=== PATIENT | male | born 1990 | race Caucasian/White ===

== ENCOUNTER 2019-02-24 16:46 | Emergency (ER) | payer OTHER ==
[2019-02-24 16:52] VITALS: BP 124/73; PULSE 75; RESP 18; TEMP 98.2
[2019-02-24] MEDS ORDERED: KETOROLAC 60 MG/2 ML VIAL IM STA (17:29)
--- NOTE | 2019-02-24 17:46 | ED ---
General Adult HPI - General Chief complaint: Extremity Injury, Lower Stated complaint: Knee Pain Time Seen by Provider: 02/24/19 16:54 Source: patient, RN notes reviewed, old records reviewed Mode of arrival: ambulatory Limitations: no limitations - History of Present Illness Initial comments: 28-year-old male patient with no pertinent past medical history presents to ED with approximately 2 months waxing and waning swelling in his right anterior knee. Patient reports that he is often his knees for work, states he does not otherwise were kneepads. Patient works at the swelling has gotten worse in the last week. Patient denies any other complaints. Patient denies any trauma or injury. Patient ambulatory without difficulty. Patient denies any fevers or chills, nausea vomiting diarrhea. Systemic: Pt denies fatigue, myalgia, fever/chills, rash. Pt denies weakness, night sweats, weight loss. Neuro: Pt denies headache, visual disturbances, syncope or pre-syncope. HEENT: Pt denies ocular discharge or irritation, otalgia, rhinorrhea, pharyngitis or notable lymphadenopathy. Cardiopulmonary: Pt denies chest pain, SOB, heart palpitations, dyspnea on exertion. Abdominal/GI: Pt denies abdominal pain, n/v/d. : Pt denies dysuria, burning w/ urination, frequency/urgency. Denies new onset urinary or bowel incontinence. MSK: Pt denies myalgia, loss of strength or function in extremities. Neuro: Pt denies new onset weakness, paresthesias. - Related Data Allergies Allergy/AdvReac Type Severity Reaction Status Date / Time No Known Allergies Allergy Verified 02/24/19 16:52 Review of Systems ROS Statement: Those systems with pertinent positive or pertinent negative responses have been documented in the HPI. ROS Other: All systems not noted in ROS Statement are negative. Past Medical History Past Medical History: No Reported History History of Any Multi-Drug Resistant Organisms: None Reported Past Surgical History: Hernia Repair Past Psychological History: No Psychological Hx Reported Smoking Status: Never smoker Past Alcohol Use History: Occasional Past Drug Use History: None Reported General Exam - General Exam Comments Initial Comments: Constitutional: NAD, AOX3, Pt has pleasant affect. HEENT: NC/AT, trachea midline, neck supple, no lymphadenopathy. Posterior pharynx non erythematous, without exudates. External ears appear normal, without discharge. Mucous membranes moist. Eyes PERRLA, EOM intact. There is no scleral icterus. No pallor noted. Cardiopulmonary: RRR, no murmurs, rubs or gallops, no JVD noted. Lungs CTAB in anterior and posterior griffith. No peripheral edema. Abdominal exam: Abdomen soft and non-distended. Abdomen non-tender to palpation in all 4 quadrants. Bowel sounds active in LLQ. No hepatosplenomegaly. No ecchymosis Neuro: CN II-XII grossly intact. No nuchal rigidity. MSK: Mild effusion noted at right anterior tibial tuberosity region. No erythema.No tenderness to palpation. Full range of motion of knee. No posterior calf tenderness bilaterally, homans sign negative bilaterally. Posterior tibialis and radial pulse +2 bilaterally. Sensation intact in upper and lower extremities. Full active ROM in upper and lower extremities, 5/5 stregnth. Limitations: no limitations Course Vital Signs 02/24/19 16:50 Temperature 98.2 F Pulse Rate 75 Respiratory 18 Rate Blood Pressure 124/73 O2 Sat by Pulse 97 Oximetry Medical Decision Making - Medical Decision Making 28-year-old male patient with no pertinent past medical history presents to ED with approximately 2 months waxing and waning swelling in his right anterior kn ee. Patient reports that he is often his knees for work, states he does not otherwise were kneepads. Patient works at the swelling has gotten worse in the last week. Patient denies any other complaints. Patient denies any trauma or injury. Patient ambulatory without difficulty. Patient denies any fevers or chills, nausea vomiting diarrhea. Patient vital signs stable, afebrile. Physical exam displayed: Mild effusion noted at right anterior tibial tuberosity region. No erythema.No tenderness to palpation. Full range of motion of knee. Explained to patient that he has bursitis. Patient administered anti- inflammatory and ED. Patient will be discharged with anti-inflammatories. Patient will follow up with primary care provider 1-2 days. Return precautions discussed, patient was understanding. Patient return to ER if condition worsens. Case discussed with Dr. Espinoza. Disposition Clinical Impression: Bursitis Disposition: HOME SELF-CARE Condition: Stable Instructions (If sedation given, give patient instructions): Knee Bursitis (ED) Additional Instructions: Patient to adhere to previously discussed treatment plan and will take medication(s) as directed. Patient to follow up with PCP in 1-2 days. Patient to return to ED if symptoms do not improve. Take anti-inflammatories as needed for pain and inflammation. Follow up with orthopedic consult 1-2 days. Return to ER if condition worsens. Return immedia tely to ER if knee becomes red, warm, and inflamed. Is patient prescribed a controlled substance at d/c from ED?: No Referrals: None,Stated [Primary Care Provider] - 1-2 days Arnel Hartman DO [Doctor of Osteopathic Medicine] - 1-2 days
--- NOTE | 2019-02-24 17:47 | ED ---
Disposition Clinical Impression: Bursitis Disposition: HOME SELF-CARE Condition: Stable Instructions (If sedation given, give patient instructions): Knee Bursitis (ED) Additional Instructions: Patient to adhere to previously discussed treatment plan and will take medication(s) as directed. Patient to follow up with PCP in 1-2 days. Patient to return to ED if symptoms do not improve. Take anti-inflammatories as needed for pain and inflammation. Follow up with orthopedic consult 1-2 days. Return to ER if condition worsens. Return immediately to ER if knee becomes red, warm, and inflamed. Prescriptions: Ibuprofen [Motrin] 600 mg PO Q6HR PRN #40 day PRN Reason: Pain Is patient prescribed a controlled substance at d/c from ED?: No Referrals: Arnel Hartman DO [Doctor of Osteopathic Medicine] - 1-2 days None,Stated [Primary Care Provider] - 1-2 days
== END 2019-02-24 18:01 | disposition home or self-care (01) ==
LOC: EC 16:46
DX: M71.561 Other bursitis, not elsewhere classified, right knee (principal)
CPT/HCPCS: 99283; 96372; J1885

== ENCOUNTER 2022-07-20 15:23 | Emergency (ER) | payer BC, OTHER ==
[2022-07-20 15:38] VITALS: BP 142/93; PULSE 56; RESP 20; TEMP 98.2
[2022-07-20] MEDS ORDERED: MAG HYDROX/AL HYDROX/SIMETH 30 ML, HYOSCYAMINE ELIXIR 10 ML, LIDOCAINE VISCOUS 2% 10 ML PO STA ×3 (15:40)
--- NOTE | 2022-07-20 16:45 | ED ---
General Adult HPI - General Chief complaint: Abdominal Pain Stated complaint: stomach pains Source: patient Mode of arrival: ambulatory Limitations: no limitations - History of Present Illness Initial comments: Patient presents to the ED with his significant other for evaluation. Patient states that he was doing a "hot chip challenge" and ate a ghost pepper chip about 2 hours ago. He states that he immediately began sweating and developed epigastric abdominal pain. Patient received a GI cocktail in the ER waiting area about an hour ago, and he states that his abdominal pain has now completely resolved and he wishes to go home. Patient denies trauma or injury, fever or chills, headache, focal neuro deficit, chest pain or pressure, dyspnea, dizziness, lower abdominal pain, back or flank pain, nausea or vomiting, diarrhea or constipation, bloody or melanotic stool, dysuria or urinary symptoms, or any other symptoms or complaints. - Related Data Previous Rx's Medication Instructions Recorded Ibuprofen [Motrin] 600 mg PO Q6HR PRN #40 day 02/24/19 Allergies Allergy/AdvReac Type Severity Reaction Status Date / Time No Known Allergies Allergy Verified 07/20/22 15:38 Review of Systems ROS Statement: Those systems with pertinent positive or pertinent negative responses have been documented in the HPI. ROS Other: All systems not noted in ROS Statement are negative. Past Medical History Past Medical History: No Reported History History of Any Multi-Drug Resistant Organisms: None Reported Past Surgical History: Hernia Repair Past Psychological History: No Psychological Hx Reported Smoking Status: Never smoker Past Alcohol Use History: Occasional Past Drug Use History: None Reported General Exam Limitations: no limitations General appearance: alert, in no apparent distress Head exam: Present: atraumatic, normocephalic Eye exam: Present: normal appearance, EOMI ENT exam: Present: mucous membranes moist Neck exam: Present: other (trachea is in midline) Respiratory exam: Present: normal lung sounds bilaterally. Absent: respiratory distress, wheezes, rales, rhonchi, stridor Cardiovascular Exam: Present: regular rate, normal rhythm, normal heart sounds, other (Normal radial pulses bilaterally) GI/Abdominal exam: Present: soft, normal bowel sounds. Absent: distended, tenderness, guarding Neurological exam: Present: alert, oriented X3. Absent: motor sensory deficit Psychiatric exam: Present: normal affect, normal mood Skin exam: Present: warm, dry, intact, normal color Course Vital Signs 07/20/22 15:35 Temperature 98.2 F Pulse Rate 56 L Respiratory 20 Rate Blood Pressure 142/93 O2 Sat by Pulse 100 Oximetry Medical Decision Making - Medical Decision Making Patient reports developing epigastric abdominal pain after eating a very spicy chip. Patient was given a GI cocktail on arrival to the ER waiting room, and he states that his pain has now completely resolved and he wishes to go home. Patient has a soft and nontender abdominal exam. I do not suspect an emergent medical or surgical condition at this time. Will discharge patient home at this time. Patient was clearly explained return and follow-up instructions, and he feels comfortable with this plan. Disposition Clinical Impression: Abdominal pain Disposition: HOME SELF-CARE Condition: Stable Instructions (If sedation given, give patient instructions): Abdominal Pain (ED) Additional Instructions: Return to the ER immediately should you develop new or worsening pain, persistent vomiting, a fever, feeling dizzy or faint, shortness of breath, or new or worsening symptoms. Follow up closely with your primary care provider. Is patient prescribed a controlled substance at d/c from ED?: No Referrals: None,Stated [Primary Care Provider] - 1-2 days Tony Zamora DO [STAFF PHYSICIAN] - 1-2 days Time of Disposition: 16:51
== END 2022-07-20 16:55 | disposition home or self-care (01) ==
LOC: EC 15:23
DX: R10.13 Epigastric pain (principal)
CPT/HCPCS: 99283

== ENCOUNTER 2025-03-14 20:00 | Emergency (ER) | payer BC ==
[2025-03-14 20:20] VITALS: BP 120/74; PULSE 78; RESP 18; TEMP 98.2
--- NOTE | 2025-03-14 20:41 | XR ---
EXAMINATION TYPE: XR ankle complete LT DATE OF EXAM: 03/14/2025 COMPARISON: NONE HISTORY: Pain TECHNIQUE: 3 views of the left ankle are submitted for evaluation. FINDINGS: There is no evidence for fracture or dislocation. Ankle mortise is intact. Soft tissues are within normal limits. IMPRESSION: No evidence for acute fracture. [facility], , 03/14/2025 8:39 PM
--- NOTE | 2025-03-14 20:48 | ED ---
Extremity Problem HPI - General Source: patient, RN notes reviewed Mode of arrival: wheelchair Limitations: no limitations <Corrine Hubbard - Last Filed: 03/14/25 20:47> <Naman Sanz - Last Filed: 03/14/25 21:35> - General Chief complaint: Extremity Problem,Nontraumatic Stated complaint: L Ankle Pain Time Seen by Provider: 03/14/25 20:47 - History of Present Illness Initial comments: Quick note: 34-year-old male presented the ER for evaluation of left ankle pain. Patient states after work today while on his hour long drive home he started to experience left ankle pain. He states when he got home he was unable to apply pressure to his left ankle given the pain. He denies any injuries or traumas. No paresthesias. (Corrine Hubbard) 34-year-old male with atraumatic left ankle pain. Patient believes this is related to his gait which has been abnormal for many years. No specific injury. No new footwear. No pain without ambulation this is only with weightbearing. No fever. No systemic symptoms. (Naman Sanz) - Related Data Previous Rx's Medication Instructions Recorded Ibuprofen [Motrin] 600 mg PO Q6HR PRN #40 day 02/24/19 Allergies Allergy/AdvReac Type Severity Reaction Status Date / Time No Known Allergies Allergy Verified 03/14/25 20:20 Review of Systems ROS Other: All systems not noted in ROS Statement are negative. <Corrine Hubbard - Last Filed: 03/14/25 20:47> ROS Other: All systems not noted in ROS Statement are negative. <Naman Sanz - Last Filed: 03/14/25 21:35> ROS Statement: Those systems with pertinent positive or pertinent negative responses have been documented in the HPI. Past Medical History Past Medical History: No Reported History History of Any Multi-Drug Resistant Organisms: None Reported Past Surgical History: Hernia Repair Past Psychological History: No Psychological Hx Reported Smoking Status: Never smoker Past Alcohol Use History: Occasional Past Drug Use History: None Reported <Corrine Hubbard - Last Filed: 03/14/25 20:47> General Exam Limitations: no limitations <Corrine Hubbard - Last Filed: 03/14/25 20:47> General appearance: alert, in no apparent distress Head exam: Present: atraumatic, normocephalic Eye exam: Present: normal appearance, PERRL ENT exam: Present: normal exam Neck exam: Present: normal inspection Respiratory exam: Present: normal lung sounds bilaterally. Absent: respiratory distress Cardiovascular Exam: Present: regular rate, normal rhythm GI/Abdominal exam: Present: soft. Absent: distended, tenderness, guarding Extremities exam: Present: normal inspection, full ROM, normal capillary refill. Absent: tenderness, pedal edema, joint swelling, calf tenderness Neurological exam: Present: alert, oriented X3, CN II-XII intact Psychiatric exam: Present: normal affect, normal mood Skin exam: Present: warm, dry, intact <Naman Sanz - Last Filed: 03/14/25 21:35> - General Exam Comments Initial Comments: Visual Physical Exam Vital signs reviewed General: Well-appearing, nontoxic, no acute distress. Head: Normocephalic, atraumatic Eyes: PERRLA, EOMI ENT: Airway patent Chest: Nonlabored breathing Skin: No visual rash, normal skin tone Neuro: Alert and oriented 3 Musculoskeletal: No gross abnormalities (Corrine Hubbard) Course Vital Signs 03/14/25 20:18 Temperature 98.2 F Pulse Rate 78 Respiratory 18 Rate Blood Pressure 120/74 O2 Sat by Pulse 97 Oximetry Medical Decision Making <Corrine Hubbard - Last Filed: 03/14/25 20:47> <Naman Sanz - Last Filed: 03/14/25 21:35> - Medical Decision Making I performed the quick note portion of this chart. Electronically signed by Corrine Hubbard PA-C (Corrine Hubbard) Was pt. sent in by a medical professional or institution (ROSY Bryan, SALES SUPPORT ADMINISTRATOR, urgent care, hospital, or senior care...) When possible be specific @ -No Did you speak to anyone other than the patient for history (EMS, parent, family, police, friend...)? What history was obtained from this source @ -No Did you review nursing and triage notes (agree or disagree)? Why? @ -I reviewed and agree with nursing and triage notes Were old charts reviewed (outside hosp., previous admission, EMS record, old EKG, old radiological studies, urgent care reports/EKG's, senior care records)? Report findings @ -No old charts were reviewed Differential Musculoskeletal Muscular strain, contusion, ligament sprain, fracture, arthritis, septic arthritis, bursitis, cellulitis, muscle spasm, nerve compression, DVT, arterial occlusion, herpes zoster, electrolyte abnormality, tumor.... This is not meant to be in all inclusive list EKG interpreted by me (3pts min.). @ -As above X-rays interpreted by me (1pt min.). @ -X-ray of the left ankle is negative for fracture dislocation, no acute findings CT interpreted by me (1pt min.). @ -None done U/S interpreted by me (1pt. min.). @ -None done What testing was considered but not performed or refused? (CT, X-rays, U/S, labs)? Why? @ -None What meds were considered but not given or refused? Why? @ -None Did you discuss the management of the patient with other professionals (professionals i.e. , PA, SALES SUPPORT ADMINISTRATOR, lab, RT, psych nurse, social sciences professor, college teacher, teacher, small business banking officer, briefcase sewer)? Give summary @ -No Was smoking cessation discussed for >3mins.? @ -No Was critical care preformed (if so, how long)? @ -No Were there social determinants of health that impacted care today? How? (Homelessness, low income, unemployed, alcoholism, drug addiction, transp ortation, low edu. Level, literacy, decrease access to med. care, longterm, rehab)? @ -No Was there de-escalation of care discussed even if they declined (Discuss DNR or withdrawal of care, Hospice)? DNR status @ -No What co-morbidities impacted this encounter? (DM, HTN, Smoking, COPD, CAD, Cancer, CVA, ARF, Chemo, Hep., AIDS, mental health diagnosis, sleep apnea, morbid obesity)? @ -None Was patient admitted / discharged? Hospital course, mention meds given and route, prescriptions, significant lab abnormalities, going to OR and other pertinent info. @ -[34 yo male with atraumatic left ankle pain, no concerning finding on exam, no point tenderness, no swelling, no skin changes, normal pulse exam. Normal cap refill. X-ray is negative. This may be related to the patient's gait. He is advised to stay off the ankle, take Motrin, and if symptoms persist follow-up with orthopedics. Undiagnosed new problem with uncertain prognosis? @ -No Drug Therapy requiring intensive monitoring for toxicity (Heparin, Nitro, Insulin, Cardizem)? @ -No Were any procedures done? @ -No Diagnosis/symptom? @Ankle pain Acute, or Chronic, or Acute on Chronic? @ -[Acute Uncomplicated (without systemic symptoms) or Complicated (systemic symptoms)? @ -Default Side effects of treatment? @ -No Exacerbation, Progression, or Severe Exacerbation? @ -No Poses a threat to life or bodily function? How? (Chest pain, [place], [place], pneumonia, PE, COPD, DKA, ARF, appy, cholecystitis, CVA, Diverticulitis, Homicidal, Suicidal, threat to staff... and all critical care pts) @ -No (Naman Sanz) Disposition <Corrine Hubbard - Last Filed: 03/14/25 20:47> Is patient prescribed a controlled substance at d/c from ED?: No Time of Disposition: 21:30 <Naman Sanz - Last Filed: 03/14/25 21:35> Clinical Impression: Ankle pain, left Disposition: HOME SELF-CARE Condition: Good Instructions (If sedation given, give patient instructions): Arthralgia (ED) Referrals: None,Stated [Primary Care Provider] - 1-2 days Arnel Hartman DO [Doctor of Osteopathic Medicine] - 1-2 days
== END 2025-03-14 21:38 | disposition home or self-care (01) ==
LOC: EC 20:00
DX: M25.572 Pain in left ankle and joints of left foot (principal)
CPT/HCPCS: 99283